=== PATIENT | male | born 1985 | race Two or more races ===

== ENCOUNTER → 2017-06-12 | Emergency (ER) | payer SELFPAY ==
[~2017-06-12] VITALS: Ht 170.2 cm; Wt 97.5 kg
[~2017-06-12] MED LIST: IBUPROFEN600 MG ORAL
[2017-06-12 18:53] VITALS: BP 152/100
--- NOTE | 2017-06-12 21:45 | Emergency Room Report ---
History of Present Illness General Chief Complaint: Multiple Trauma/Fall Source: Patient Present Illness HPI The patient is a 31-year-old male presenting for pain after slipping and falling. He states that he was using the restroom in this hospital when he slipped on a wet floor. He fell first on to his left hand and then onto his knees. Pain is a 6/10 dull ache primarily to the left wrist. Does not radiate. Worse with movement. He denies any numbness or tingling. He did not hit his head or lose consciousness. He denies any other symptoms Allergies: Coded Allergies: No Known Allergies (Unverified , 06/12/17) Patient History Past Medical History: see triage record Pertinent Family History: none Reviewed Nursing Documentation: PMH: Agreed, PSxH: Agreed Nursing Documentation-PMH Past Medical History: No Stated History Review of Systems All Other Systems: negative except mentioned in HPI Physical Exam Vital Signs Date Time Temp Pulse Resp B/P (MAP) Pulse Ox O2 Delivery O2 Flow Rate FiO2 06/12/17 18:53 98.2 88 21 152/100 97 Room Air Sp02 EP Interpretation: reviewed, normal General Appearance: no apparent distress, alert, GCS 15, non-toxic Head: normocephalic, atraumatic Eyes: bilateral eye normal inspection, bilateral eye PERRL Musculoskeletal: normal inspection, back normal, normal range of motion, tender - L wrist Neurologic: alert, oriented x3, responsive, motor strength/tone normal, sensory intact, speech normal Psychiatric: judgement/insight normal, memory normal, mood/affect normal, no suicidal/homicidal ideation Skin: normal color, no rash, warm/dry, well hydrated Procedures Splinting Splinting : Consent: Verbal Location: L arm Pre-Made Type: velcro Splint: wrist Pre-Proc Neuro Vasc Exam: normal Post-Proc Neuro Vasc Exam: normal Patient Tolerated: Well Complications: None Medical Decision Making PA Attestation Dr. Gaspar is my supervising physician. Patient management was discussed with my supervising physician Diagnostic Impression: Primary Impression: Sprain of wrist, left Qualified Codes: S63.502A - Unspecified sprain of left wrist, initial encounter ER Course The patient is a 31-year-old male presenting for pain after slipping and falling. Ddx considered include but not limited to sprain/strain, fracture, contusion Physical exam: Left wrist: Full active range of motion is intact. No obvious deformity. No edema. There is diffuse tenderness to palpation. Bilateral knees: Nontender. Normal gait. No ecchymosis or edema X-ray of the left wrist reveals no acute findings A wrist splint is placed and the patient will be discharged home with Motrin. ER precautions are given Other X-Ray Diagnostic Results Other X-Ray Diagnostic Results : X-Ray ordered: L wrist # of Views/Limited Vs Complete: 3 View Indication: Pain EP Interpretation: Yes LOY Xray: Interpretation reviewed, by supervising MD, and agrees with findings. Interpretation: no dislocation, no soft tissue swelling, no fractures Impression: No acute disease Electronically Signed by: Aroldo Guerrero PA-C Last Vital Signs Date Time Temp Pulse Resp B/P (MAP) Pulse Ox O2 Delivery O2 Flow Rate FiO2 06/12/17 18:53 98.2 88 21 152/100 97 Room Air Status: improved Disposition: HOME, SELF-CARE Condition: Improved Scripts Ibuprofen* (MOTRIN*) 600 Mg Tablet 600 MG ORAL Q8H Y for For Pain, #30 TAB 0 Refills Prov: AROLDO GUERRERO 06/12/17 Referrals: NOT CHOSEN [facility]/,REFERRING (PCP) Patient Instructions: Wrist Sprain Additional Instructions: I discussed my findings with the patient. All questions and concerns have been answered. Treatment and medication compliance have been addressed. I advised the patient that they need to follow up with PMD in 3-5 days. Return to ED if pain remains or worsens, numbness or tingling occurs, new rash is noticed, fever is noticed, or if needed for any reason. Patient verbalized understanding of discharge instructions. AROLDO GUERRERO Jun 12, 2017 21:45
--- NOTE | 2017-06-13 11:03 | Diagnostic Imaging Report ---
Indication: Pain Technique: XRAY Wrist Complete L Comparison: None Findings: There is no acute fracture or dislocation anatomic alignment joint spaces are preserved. No focal soft tissue abnormality is appreciated. No radiopaque foreign body seen. Impression: No acute fracture or dislocation.
== END | disposition home or self-care (01) ==
LOC: EMR 19:56
DX: S63.502A Unspecified sprain of left wrist, initial encounter (principal); W01.0XXA Fall on same level from slipping, tripping and stumbling without subsequent striking against object, initial encounter; Y92.239 Unspecified place in hospital as the place of occurrence of the external cause
CPT/HCPCS: 99283